=== PATIENT | female | born 1980 | race Two or more races ===

== ENCOUNTER 2016-04-19 09:19 | Emergency (ER) | payer SELFPAY ==
[~2016-04-19] VITALS: Ht 167.6 cm; Wt 72.6 kg
[~2016-04-19 09:19] MED LIST: CYCL10TA2 PO; METH4TAB2 PO; NAPR500T8 PO
[2016-04-19 10:08] VITALS: BP 127/68
[2016-04-19] MEDS ORDERED: DEXAMETHASONE SOD PHOS 20 MG/5 ML VIAL. IM ONE (10:45)
[2016-04-19] MEDS ORDERED: IBUPROFEN 100 MG/5 ML ORAL.SUSP. PO ONE (10:45)
[2016-04-19] MEDS ORDERED: ACETAMINOPHEN 650 MG/20.3 ML SOLUTION. PO ONE (10:45)
[2016-04-19] MEDS ORDERED: LIDOCAINE 2% VISCOUS 15 ML SOLUTION. SWSW ONE (10:45)
[2016-04-19 10:53] LABS: NEGATIVE OBC STREP NEG; POSITIVE OBC STREP POS
[2016-04-19] MEDS ORDERED: LIDO20SO PO (11:46)
[2016-04-19] MEDS ORDERED: AMOX875T PO (11:46)
[2016-04-19] MEDS ORDERED: PRED50TA PO (11:46)
--- NOTE | 2016-04-19 11:47 | PHYS DOC ---
Past Medical History Past Medical History: No Pertinent History Past Surgical History: , Tubal ligation Alcohol Use: Occasionally Drug Use: None Adult General Chief Complaint Chief Complaint: SORE THROAT HPI HPI Patient is a 36 year old female who presents with body aches subjective fevers and a sore throat since yesterday. Review of Systems Review of Systems Constitutional: Body aches and subjective fever Eyes: Denies change in visual acuity, redness, or eye pain [] HENT: sore throat [] Respiratory: Denies cough or shortness of breath [] Cardiovascular: No additional information not addressed in HPI [] GI: Denies abdominal pain, nausea, vomiting, bloody stools or diarrhea [] : Denies dysuria or hematuria [] Musculoskeletal: Denies back pain or joint pain [] Integument: Denies rash or skin lesions [] Neurologic: Denies headache, focal weakness or sensory changes [] Endocrine: Denies polyuria or polydipsia [] Current Medications Current Medications Current Medications Medications (Trade) Dose Ordered Sig/[facility] Start Time Stop Time Status Last Admin Dose Admin Acetaminophen (Tylenol) 650 mg 1X ONCE 04/19/16 10:45 04/19/16 10:52 DC 04/19/16 10:57 650 MG Dexamethasone Sodium Phosphate (Decadron) 10 mg 1X ONCE 04/19/16 10:45 04/19/16 10:52 DC 04/19/16 10:58 10 MG Ibuprofen (Motrin) 600 mg 1X ONCE 04/19/16 10:45 04/19/16 10:52 DC 04/19/16 10:57 600 MG Lidocaine HCl (Viscous Lidocaine) 15 ml 1X ONCE 04/19/16 10:45 04/19/16 10:52 DC 04/19/16 10:57 15 ML Allergies Allergies Allergies Coded Allergies Type Severity Reaction Last Updated Verified No Known Drug Allergies 01/06/16 No Physical Exam Physical Exam Constitutional: Well developed, well nourished, no acute distress, non-toxic appearance. [] HENT: Normocephalic, atraumatic, bilateral external ears normal, oropharynx moist, no oral exudates, nose normal. [] +3 tonsils with mild erythema and mild amount of exudate bilaterally. Midline uvula. +2 anterior cervical adenopathy. Eyes: PERRLA, EOMI, conjunctiva normal, no discharge. [] Neck: Normal range of motion, no tenderness, supple, no stridor. [] Cardiovascular:Heart rate regular rhythm, no murmur [] Lungs & Thorax: Bilateral breath sounds clear to auscultation [] Abdomen: Bowel sounds normal, soft, no tenderness, no masses, no pulsatile masses. [] Skin: Warm, dry, no erythema, no rash. [] Back: No tenderness, no CVA tenderness. [] Extremities: No tenderness, no cyanosis, no clubbing, ROM intact, no edema. [] Neurologic: Alert and oriented X 3, normal motor function, normal sensory function, no focal deficits noted. [] Psychologic: Affect normal, judgement normal, mood normal. [] Current Patient Data Vital Signs Vital Signs Date Time Temp Pulse Resp B/P Pulse Ox O2 Delivery O2 Flow Rate FiO2 04/19/16 10:08 103 131 18 98 Room Air 103.0 Lab Values Laboratory Tests Test 04/19/16 10:13 Group A Streptococcus Rapid Negative (NEGATIVE) EKG EKG [] Radiology/Procedures Radiology/Procedures [] Course & Med Decision Making Course & Med Decision Making Pertinent Labs and Imaging studies reviewed. (See chart for details) Patient's physical exam is consistent with tonsillitis. She also has a fever in the ED. She was discharged with amoxicillin for 10 days. She was given a Decadron injection in the ED and discharged with prednisone for 4 days and lidocaine viscous. She wass provided return precautions and discharged in stable condition. Dragon Disclaimer Dragon Disclaimer This electronic medical record was generated, in whole or in part, using a voice recognition dictation system. Departure Departure Impression: Primary Impression: Acute tonsillitis Additional Impression: Fever Disposition: 01 HOME, SELF-CARE Condition: STABLE Referrals: NO PCP (PCP) Follow-up with your doctor in one week Patient Instructions: Tonsillitis, [id number] Additional Instructions: You were seen for acute tonsillitis, fever and body aches. Ensure you complete your antibiotics. Take Tylenol every 4 hours and Motrin every 6 hours as needed for fever and pain. Use saltwater gargles as well. Follow-up with your doctor in one week, come back to the emergency room for any concerning or worsening symptoms. Scripts Amoxicillin 875 Mg Tablet1 Tab PO BID #20 TAB Prov:ELIER GATICA APRN 04/19/16 Lidocaine Hcl (Lidocaine Hcl Viscous)20 Mg/1 Ml Solution5 Ml PO TID #100 ML Prov:ELIER GATICA APRN 04/19/16 Prednisone 50 Mg Tablet1 Tab PO DAILY #4 TAB Prov:ELIER GATICA APRN 04/19/16 Problem Qualifiers Primary Impression: Acute tonsillitis Pharyngitis/tonsillitis etiology: unspecified etiology Qualified Code: J03.90 - Acute tonsillitis, unspecified Additional Impression: Fever Fever type: unspecified Qualified Code: R50.9 - Fever, unspecified ELIER GATICA APRN Apr 19, 2016 11:47
== END 2016-04-19 11:53 | disposition home or self-care (01) ==
LOC: ER 09:19
DX: J03.90 Acute tonsillitis, unspecified (principal)
CPT/HCPCS: 87070; 87880; 96372; 99284; J1100

== ENCOUNTER 2019-01-07 18:36 | Emergency (ER) | payer SELFPAY ==
[~2019-01-07] VITALS: Ht 167.6 cm; Wt 72.6 kg
[~2019-01-07 18:36] MED LIST changes: +AMOX875T PO; +LIDO20SO PO; +PRED50TA PO
[2019-01-07 19:19] VITALS: BP 139/88
[2019-01-07] MEDS ORDERED: CEPH500T PO (19:24)
[2019-01-07] MEDS ORDERED: KETOROLAC 30 MG/ML VIAL. IM ONE (19:30)
--- NOTE | 2019-01-07 19:51 | PHYS DOC ---
Past Medical History Past Medical History: No Pertinent History Past Surgical History: , Tubal ligation Alcohol Use: None Drug Use: None Adult General Chief Complaint Chief Complaint: HEADACHE HPI HPI Patient is a 38 year old female who presents with chief complaint of a bump behind her right ear on her right scalp and then started hurting 2 hours ago no fever no trauma does not recall any other problem in this area she is not actually having a headache is really just a soreness and pain when she touches the right posterior occipital region. Review of Systems Review of Systems Constitutional: Denies fever or chills [] Eyes: Denies change in visual acuity, redness, or eye pain [] HENT: Denies nasal congestion or sore throat [] Respiratory: Denies cough or shortness of breath [] Cardiovascular: No additional information not addressed in HPI [] GI: Denies abdominal pain, nausea, vomiting, bloody stools or diarrhea [] : Denies dysuria or hematuria [] Musculoskeletal: Denies back pain or joint pain [] Integument: Denies rash or skin lesions [] Neurologic: Denies headache, focal weakness or sensory changes [] Endocrine: Denies polyuria or polydipsia [] All other systems were reviewed and found to be within normal limits, except as documented in this note. Current Medications Current Medications Current Medications Medications (Trade) Dose Ordered Sig/[facility] Start Time Stop Time Status Last Admin Dose Admin Ketorolac Tromethamine (Toradol 30mg Vial) 30 mg 1X ONCE 01/07/19 19:30 01/07/19 19:31 DC Allergies Allergies Allergies Coded Allergies Type Severity Reaction Last Updated Verified No Known Drug Allergies 01/06/16 No Physical Exam Physical Exam Constitutional: Well developed, well nourished, no acute distress, non-toxic appearance. [] HENT: Normocephalic, atraumatic, bilateral external ears normal, oropharynx moist, no oral exudates, nose normal. [] Eyes: PERRLA, EOMI, conjunctiva normal, no discharge. [] Neck: Normal range of motion, no tenderness, supple, no stridor. [] Cardiovascular:Heart rate regular rhythm, no murmur [] Lungs & Thorax: Bilateral breath sounds clear to auscultation [] Abdomen: Bowel sounds normal, soft, no tenderness, no masses, no pulsatile masses. [] Skin: There is a small swollen area of the right posterior scalp there may be some very faint erythema differential would include early folliculitis versus some small contusion patient denied any trauma of any kind no significant sinusitis or abscess was seen however. The mastoid area was not tender the ty mpanic membranes were clear neck was supple no lymphadenopathy Extremities: No tenderness, no cyanosis, no clubbing, ROM intact, no edema. [] Neurologic: Alert and oriented X 3, normal motor function, normal sensory function, no focal deficits noted. [] Psychologic: Affect normal, judgement normal, mood normal. [] Current Patient Data Vital Signs Vital Signs Date Time Temp Pulse Resp B/P (MAP) Pulse Ox O2 Delivery O2 Flow Rate FiO2 01/07/19 19:19 98.2 79 16 139/88 (105) 99 Room Air 98.2 EKG EKG [] Radiology/Procedures Radiology/Procedures [] Course & Med Decision Making Course & Med Decision Making Pertinent Labs and Imaging studies reviewed. (See chart for details) []Well-appearing neuro intact has some scalp tenderness isolated may have a mild area of swelling try antibiotics return precautions discussed no drainable abscess at this time no trauma no imaging, not actually having a headache Dragon Disclaimer Dragon Disclaimer This electronic medical record was generated, in whole or in part, using a voice recognition dictation system. Departure Departure Impression: Primary Impression: Cellulitis Disposition: 01 HOME, SELF-CARE Condition: STABLE Patient Instructions: Cellulitis, [id number] Scripts Cephalexin (CEPHALEXIN) 500 Mg Tablet 1 TAB PO TID, #21 TAB Prov: MARY LOU YE MD 01/07/19 MARY LOU YE MD Jan 07, 2019 19:51
== END 2019-01-07 20:05 | disposition home or self-care (01) ==
LOC: ER 18:36
DX: L03.811 Cellulitis of head [any part, except face] (principal); Z98.51 Tubal ligation status
CPT/HCPCS: 96372; 99283; J1885